=== PATIENT | male | born 1955 | race Asian ===

== ENCOUNTER 2022-10-08 17:04 | Emergency (ER) | payer OTHER ==
[~2022-10-08] VITALS: Ht 195.6 cm
[2022-10-08] MEDS ORDERED: OLANZAPINE10 M2 PO (21:11)
[2022-10-08] MEDS ORDERED: RISP1TAB PO (21:12)
[2022-10-08] MEDS ORDERED: DIVA500T2 PO (21:13)
[2022-10-08] MEDS ORDERED: GLIP10TA55 PO (21:14)
[2022-10-08] MEDS ORDERED: METF500T PO (21:16)
[2022-10-08] MEDS ORDERED: ZINC50 M1 PO (21:19)
[2022-10-09] MEDS ORDERED: ASPIRIN ADULT L81 M1 PO (14:54)
[2022-10-09] MEDS ORDERED: CENTRUM MEN1 TAB PO (14:55)
[2022-10-09] MEDS ORDERED: FARXIGA10 MG PO (14:55)
[2022-10-09] MEDS ORDERED: ZESTRIL40 MG PO (14:56)
[2022-10-09] MEDS ORDERED: HYDR25TA60 PO (14:56)
[2022-10-09] MEDS ORDERED: OMEGA 31200 MG PO (14:57)
[2022-10-09] MEDS ORDERED: REMERON30 MG PO (14:57)
== END 2022-10-08 18:01 | disposition still patient (30) ==
LOC: ED 17:04
DX: F20.89 Other schizophrenia (principal); R46.89 Other symptoms and signs involving appearance and behavior; Z11.52 Encounter for screening for COVID-19; Z04.6 Encounter for general psychiatric examination, requested by authority
CPT/HCPCS: 81002; 87635; 99283; U0003